=== PATIENT | male | born 1995 | race Asian ===

== ENCOUNTER 2017-11-06 00:18 | Emergency (ER) | payer OTHER, MEDICAID ==
[~2017-11-06] VITALS: Ht 167.6 cm; Wt 97.5 kg
[~2017-11-06 00:18] MED LIST: OLAN5TAB26; PARO30TA62; TRAZ-129; VICODIN
[2017-11-06 02:46] LABS: CLARITY URINE CLEAR (CLEAR); COLOR URINE YELLOW (YELLOW); KETONES URINE NEGATIVE (NEGATIVE); LEUKOCYTE ESTERASE URINE NEGATIVE (NEGATIVE); NITRITE URINE NEGATIVE (NEGATIVE); OCCULT BLOOD URINE NEGATIVE (NEGATIVE); PROTEIN URINE NEGATIVE (NEGATIVE); SPECIFIC GRAVITY URINE 1.024 (1.005-1.030); UROBILINOGEN URINE 0.2 E.U./dL (0.2-1.0)
[2017-11-06 02:57] LABS: *AMPHETAMINES SCREEN URINE NEGATIVE (NEGATIVE); *BARBITURATES SCREEN URINE NEGATIVE (NEGATIVE); *BENZODIAZEPINES SCREEN URINE NEGATIVE (NEGATIVE); *COCAINE SCREEN URINE NEGATIVE (NEGATIVE); CANNABINOID URINE SCREEN PRESUMTIVE POSITIVE (NEGATIVE); METHADONE URINE SCREEN NEGATIVE (NEGATIVE); OPIATES URINE SCREEN NEGATIVE (NEGATIVE); PHENCYCLIDINE URINE SCREEN NEGATIVE (NEGATIVE)
[2017-11-06] MEDS ORDERED: ONDANSETRON 4MG ODT PO STA (02:58)
[2017-11-06] MEDS ORDERED: MAGNESIUM/ALUMINUM HYDROXIDE/SIMETHICONE 30ML UDC PO STA (02:58)
[2017-11-06] MEDS ORDERED: VISCOUS LIDOCAINE 2% 15 ML UDC PO STA (02:58)
[2017-11-06] MEDS ORDERED: FAMOTIDINE 20MG TABLET PO ONE (03:00)
[2017-11-06 03:29] LABS: CARBON DIOXIDE 24 mEq/L (21-32); CHLORIDE 112 mEq/L (98-107)
[2017-11-06 04:06] LABS: BASOPHILS % 0.9 % (0.0-2.0); EOSINOPHILS % 5.9 % (0.0-5.0); HEMATOCRIT. 47.4 % (42.0-52.0); HEMOGLOBIN. 16.4 g/dL (14.0-18.0); MEAN CORPUSCULAR HEMOGLOBIN 30.6 pg (28.0-32.0); MEAN CORPUSCULAR VOLUME 88.3 fL (80.0-94.0); MEAN PLATELET VOLUME 8.6 fl (7.4-10.4); MONOCYTES % 7.5 % (2.0-8.0); NEUTROPHILS % 54.7 % (40.0-76.0); PLATELET 185 x1000/uL (130-400); RED BLOOD CELL COUNT 5.37 mill/uL (4.7-6.1); RED CELL DISTRIBUTION WIDTH 13.1 % (11.6-14.6)
[2017-11-06 04:56] VITALS: BP 115/67
== END 2017-11-06 05:01 | disposition home or self-care (01) ==
LOC: ER 00:30
DX: R10.84 Generalized abdominal pain (principal); K21.9 Gastro-esophageal reflux disease without esophagitis; J45.909 Unspecified asthma, uncomplicated; R19.7 Diarrhea, unspecified; R11.2 Nausea with vomiting, unspecified; F15.10 Other stimulant abuse, uncomplicated; F12.10 Cannabis abuse, uncomplicated
CPT/HCPCS: 36415; 80053; 80305; 81003; 83690; 85025; 99284; Q0162

== ENCOUNTER 2018-09-21 21:51 | Emergency (ER) | payer OTHER, MEDICAID ==
[~2018-09-21] VITALS: Ht 167.6 cm; Wt 93.4 kg
[~2018-09-21 21:51] MED LIST changes: -TRAZ-129; +TRAZ-212
[2018-09-21 22:12] VITALS: BP 130/58
== END 2018-09-22 02:00 | disposition left against medical advice (07) ==
LOC: ER 21:51
DX: Z53.21 Procedure and treatment not carried out due to patient leaving prior to being seen by health care provider (principal)

== ENCOUNTER 2024-08-20 06:13 | Emergency (ER) | payer OTHER ==
[~2024-08-20] VITALS: Ht 167.6 cm; Wt 86.0 kg
[~2024-08-20 06:13] MED LIST changes: +NAPR-1129 MT; -OLAN5TAB26; +OLAN5TAB74; +P50 MT; -TRAZ-212; +TRAZ-251
[2024-08-20 06:17] VITALS: PULSE 76; RESP 16; O2SAT 99
[2024-08-20 06:35] VITALS: BP 102/52; TEMP 98.4; O2SAT 98
== END 2024-08-20 07:40 | disposition left against medical advice (07) ==
LOC: ER 06:43
DX: K59.00 Constipation, unspecified (principal); Z53.21 Procedure and treatment not carried out due to patient leaving prior to being seen by health care provider
CPT/HCPCS: 99281